=== PATIENT | female | born 1955 | race Caucasian/White ===

== ENCOUNTER 2019-12-15 05:16 | Inpatient (IN) | payer MEDICARE, OTHER ==
[~2019-12-15 05:16] MED LIST: Celecoxib 200 MG Cap PO ONE
[2019-12-15] MEDS ORDERED: Scopolamine 1.5 MG Transdermal Patch TOP ONE (05:45)
[2019-12-15] MEDS ORDERED: Acetaminophen 500 MG Tab PO ONE (05:45)
[2019-12-15] MEDS ORDERED: Celecoxib 200 MG Cap PO ONE (05:48)
[2019-12-15] MEDS ORDERED: Dextrose 5%-Lactated Ringers 1,000 ML IV SCH (06:00)
[2019-12-15 06:06] LABS: HEMOGLOBIN A1C 5.4 % (4.5-6.2)
[2019-12-15] MEDS ORDERED: cefOXitin 2 GM Vial ONE (06:38)
[2019-12-15] MEDS ORDERED: fentaNYL 250 MCG/5 ML SDV ONE ×2 (07:12→07:29)
[2019-12-15] MEDS ORDERED: Rocuronium 50 MG/5 ML Vial ONE (07:13)
[2019-12-15] MEDS ORDERED: Propofol 200 MG/20 ML SDV ONE (07:13)
[2019-12-15] MEDS ORDERED: Neostigmine Methylsulfate 1 MG/ML 5 ML Syringe ONE (07:13)
[2019-12-15] MEDS ORDERED: Glycopyrrolate 0.2 MG/ML 5 ML MDV ONE (07:13)
[2019-12-15] MEDS ORDERED: Ondansetron 4 MG/2 ML SDV ONE (07:13)
[2019-12-15] MEDS ORDERED: Succinylcholine 200 MG/10 ML MDV ONE (07:13)
[2019-12-15] MEDS ORDERED: Dexamethasone 4 MG/ML SDV ONE (07:13)
[2019-12-15] MEDS ORDERED: cefOXitin 2 GM in Sodium Chloride 0.9% 50 ML IV ONE (07:15)
[2019-12-15] MEDS ORDERED: Ropivacaine 44 ML, dexAMETHasone 8 MG, EPINEPHrine 0.4 MG, Sodium Chloride 0.9% 33.6 ML NERVRT SCH ×8 (08:00→09:40)
[2019-12-15] MEDS ORDERED: fentaNYL 100 MCG/2 ML SDV IVPUSH ONE (09:18)
[2019-12-15] MEDS ORDERED: 50% Dextrose in Water 50 ML Syringe IVPUSH PRN (09:32)
[2019-12-15] MEDS ORDERED: Insulin Lispro Protamine/Lispro 75-25 100 Units/ML 10 ML Vial SUBCUT ONE (09:32)
[2019-12-15] MEDS ORDERED: Glucagon,Human Recombinant 1 MG Vial IM PRN (09:32)
[2019-12-15] MEDS ORDERED: Ketamine 50 MG in Sodium Chloride 0.9% 49.5 ML IV SCH (09:40)
[2019-12-15] MEDS ORDERED: Magnesium Sulfate 2.5 GM in Sodium Chloride 0.9% 100 ML IV SCH (09:40)
[2019-12-15] MEDS ORDERED: Magnesium Sulfate 4.2 GM in Sodium Chloride 0.9% 250 ML IV ONE (09:40)
[2019-12-15] MEDS ORDERED: Ketamine 500 MG/5 ML MDV IV SCH (09:40)
[2019-12-15] MEDS ORDERED: Insulin Lispro 100 Unit/ML 3 ML KwikPen SUBCUT ONE (09:45)
[2019-12-15] MEDS ORDERED: hydrOXYzine HCL 100 MG/2 ML SDV IM ONE (09:45)
[2019-12-15] MEDS ORDERED: Cyclobenzaprine 10 MG Tab PO PRN (10:43)
[2019-12-15] MEDS: Dextrose 5%-Lactated Ringers 1,000 ML IV SCH (10:54)
[2019-12-15] MEDS: Lactated Ringers 1,000 ML IV SCH (10:54)
[2019-12-15] MEDS ORDERED: Insulin Lispro 100 Unit/ML 3 ML KwikPen SUBCUT PRN (11:00)
[2019-12-15] MEDS ORDERED: oxyCODONE 5 MG Tab PO PRN (11:00)
[2019-12-15] MEDS ORDERED: Ondansetron 4 MG/2 ML SDV IVPUSH PRN (11:00)
[2019-12-15] MEDS ORDERED: Calcium Gluconate 10% 1 GM/10 ML SDV IVPUSH PRN (11:00)
[2019-12-15] MEDS ORDERED: HYDROmorphone 0.5 MG/0.5 ML Syringe IVPUSH PRN (11:00)
[2019-12-15] MEDS ORDERED: Acetaminophen 500 MG Tab PO PRN (11:00)
[2019-12-15] MEDS ORDERED: HYDROmorphone 1 MG/ML Syringe IV PRN (11:00)
[2019-12-15] MEDS ORDERED: Metoclopramide 10 MG/2 ML SDV IVPUSH PRN (11:00)
[2019-12-15] MEDS ORDERED: diphenhydrAMINE 50 MG/ML SDV IVPUSH PRN (11:00)
[2019-12-15] MEDS ORDERED: Labetalol 20 MG/4 ML Syringe IVPUSH PRN (11:00)
[2019-12-15] MEDS ORDERED: Melatonin 3 MG Tab PO PRN (11:45)
[2019-12-15] MEDS ORDERED: Cetirizine 10 MG Tab PO PRN (11:50)
[2019-12-15] MEDS ORDERED: Pantoprazole 40 MG Vial IVPUSH SCH (12:30)
[2019-12-15] MEDS: cefOXitin 2 GM in Sodium Chloride 0.9% 50 ML IV SCH ×2 (13:10→18:39)
[2019-12-15] MEDS: Acetaminophen 500 MG Tab PO SCH ×2 (14:50→23:10)
[2019-12-15] MEDS ORDERED: MVI, Adult with Vitamin K 10 ML, Thiamine 200 MG, Chromium/Copper/Mang/Selen/Zn 1 ML in... IV SCH ×4 (16:00)
[2019-12-15] MEDS: Heparin Sodium 5,000 Units/ML Vial SUBCUT SCH (19:36)
[2019-12-15] MEDS ORDERED: Benzocaine/Cetylpyridinium/Menthol Lozenge MUCMEM PRN (23:08)
[2019-12-15] MEDS: hydrOXYzine HCL 100 MG/2 ML SDV IM PRN (23:17)
[2019-12-16] MEDS: Dextrose 5%-Lactated Ringers 1,000 ML IV SCH (01:56)
[2019-12-16] MEDS: Lactated Ringers 1,000 ML IV SCH (01:56)
[2019-12-16] MEDS: cefOXitin 2 GM in Sodium Chloride 0.9% 50 ML IV SCH ×3 (02:24→13:02)
[2019-12-16] MEDS ORDERED: Iopamidol 612 MG/ML 50 ML SDV PO STA (05:29)
[2019-12-16] MEDS: Acetaminophen 500 MG Tab PO SCH ×3 (06:39→21:10)
[2019-12-16] MEDS ORDERED: Ondansetron 4 MG Tab.DIS PO PRN (06:57)
[2019-12-16] MEDS ORDERED: Lactated Ringers 1,000 ML IV SCH (06:58)
[2019-12-16] MEDS ORDERED: hydrOXYzine HCl 25 MG Tab PO PRN (06:59)
[2019-12-16] MEDS: Heparin Sodium 5,000 Units/ML Vial SUBCUT SCH ×2 (07:14→19:32)
[2019-12-16] MEDS: Levothyroxine 100 MCG, Levothyroxine 25 MCG PO SCH ×2 (07:14)
[2019-12-16] MEDS: hydrOXYzine HCL 100 MG/2 ML SDV IM PRN (07:24)
--- NOTE | 2019-12-16 08:32 | PN ---
DATE OF SERVICE: 12/16/2019 SUBJECTIVE: Conchita is postoperative day #1. Her upper GI this morning was normal. Vital signs have been stable. Afebrile. Oral intake 715, output is 1020. Remainder of review of systems negative for any pertinent positives and negatives. OBJECTIVE: GENERAL: Conchita Gore is a pleasant 64-year-old female. She is alert and orientated. VITAL SIGNS: Stable. TPR is 97.4, 62, 18, blood pressure 124/62. Blood sugars have been 107, 185, 166, and 111. HEENT: Negative. NECK: Supple. HEART: Regular rate and rhythm. LUNGS: Clear. ABDOMEN: Dressings dry and intact. LOVE drain is draining a light red drainage, 90 mL. EXTREMITIES: Without peripheral edema. ASSESSMENT: 1. Laparoscopic Shaw-en-Y gastric bypass surgery. 2. Liver biopsy. 3. Repair of diaphragmatic hernia. 4. Excision of mediastinal lipoma. POSTOPERATIVE DIAGNOSES: 1. Morbid obesity. 2. Hepatomegaly. 3. Diaphragmatic hernia. 4. Mediastinal lipoma. 5. Date of procedure: 12/15/2019. Surgeon: Marty Carvajal MD. PLAN: 1. Decrease lactated Ringer's IV to 100 mL per hour. 2. Discontinue D5 LR. 3. Step 2 gastric bypass diet without cereal. 4. Communication order: 3 med cups, 1 every 20 minutes or 3 per hour. 5. Dressing off, may shower. 6. Atarax 25 mg p.o. q.4 hours p.r.n. pain. 7. Zofran ODT 4 mg sublingual every 4 hours p.r.n. nausea, vomiting. 8. Discontinue IV Dilaudid and oxycodone. 9. Recommend use of incentive spirometer as directed ambulate 6 times daily. 10.We will evaluate p.r.n. or in a.m. Shawna Bowman PA-C /[id number]
[2019-12-16] MEDS: Metoprolol Succinate 50 MG Tab.ER PO SCH (09:00)
[2019-12-16] MEDS: SCOPOLAMINE PATCH CHECK TOP SCH (09:01)
[2019-12-16] MEDS: ESCITALOPRAM PO SCH ×2 (09:01)
[2019-12-16] MEDS: amLODIPine 5 MG Tab PO SCH (09:01)
[2019-12-16] MEDS: Celecoxib 200 MG Cap PO SCH ×2 (09:01→21:10)
[2019-12-16] MEDS: Benazepril 10 MG Tab PO SCH (09:02)
--- NOTE | 2019-12-16 10:09 | CR ---
[facility] HISTORY: Postbariatric surgery FINDINGS: Patient swallowed water-soluble contrast. Upright views of the abdomen show no evidence of extravasation or obstruction. There is a surgical drain in the left upper quadrant. There is some air in the excluded portion of the stomach. IMPRESSION: Status post bariatric surgery No extravasation or obstruction seen
[2019-12-16] MEDS ORDERED: Pantoprazole 40 MG Delayed-Release Granules 1 Packet PO SCH (11:00)
[2019-12-16] MEDS ORDERED: MVI, Adult with Vitamin K 10 ML, Thiamine 200 MG, Chromium/Copper/Mang/Selen/Zn 1 ML in... IV SCH ×4 (16:00)
[2019-12-17] MEDS: Acetaminophen 500 MG Tab PO SCH (05:51)
[2019-12-17] MEDS: SCOPOLAMINE PATCH CHECK TOP SCH (08:08)
[2019-12-17] MEDS: Levothyroxine 100 MCG, Levothyroxine 25 MCG PO SCH ×2 (08:10)
[2019-12-17] MEDS: Celecoxib 200 MG Cap PO SCH (08:12)
[2019-12-17] MEDS: ESCITALOPRAM PO SCH ×2 (08:12)
[2019-12-17] MEDS: Benazepril 10 MG Tab PO SCH (08:13)
[2019-12-17] MEDS: amLODIPine 5 MG Tab PO SCH (08:14)
[2019-12-17] MEDS: Metoprolol Succinate 50 MG Tab.ER PO SCH (08:15)
[2019-12-17] MEDS: Heparin Sodium 5,000 Units/ML Vial SUBCUT SCH (08:16)
[2019-12-17] MEDS ORDERED: Magnesium Hydroxide 400 MG/5 ML Susp 30 ML Cup PO ONE (09:00)
[2019-12-17] MEDS ORDERED: Cyanocobalamin (Vitamin B12) 1,000 MCG/ML SDV IM ONE (09:00)
--- NOTE | 2019-12-19 12:58 | DISCH ---
FINAL DIAGNOSES: 1. History of rheumatoid arthritis. 2. History of obstructive sleep apnea. 3. Type 2 diabetes mellitus. 4. Obesity. OPERATIVE PROCEDURES: Done on date of 12/14: 1. Laparoscopic Shaw-en-Y gastric bypass with long limb gastroenterostomy. 2. Armaan-Cut needle liver biopsy. 3. Repair of paraesophageal diaphragmatic hernia. 4. Excision of mediastinal lipoma. SUMMARY: This is a 64-year-old female, presenting with longstanding morbid obesity, increasingly significant comorbidities. After preoperative evaluation and discussion, she wished to proceed with gastric bypass procedure. This was done on the date of admission with the above additional procedures done concurrently. Postoperatively, she has had no significant problems. She had been off the metformin and had no diabetic medications. At any rate, her blood sugars were in the 101 to 127 range for the last 48 hours. Otherwise, she will be sent home on a step 2 diet until first appointment, which will be with Shawna Bowman, on 12/26/2019. Medications will be same as preop other than we will hold the metformin and offer Tylenol 1 g q.6 hours p.r.n. pain. /[id number]
--- NOTE | 2019-12-21 08:09 | OR ---
DATE OF PROCEDURE: 12/15/2019 SURGEON: Marty Carvajal MD PREOPERATIVE DIAGNOSIS: Morbid obesity. POSTOPERATIVE DIAGNOSES: 1. Morbid obesity. 2. Marked hepatomegaly. 3. Paraesophageal diaphragmatic hernia. 4. Mediastinal lipoma. OPERATIVE PROCEDURES: 1. Laparoscopic Shaw-en-Y gastric bypass with long limb gastroenterostomy (55186). 2. Armaan-Cut needle liver biopsy (17212). 3. Repair of paraesophageal diaphragmatic hernia (98848). 4. Excision of mediastinal lipoma (12094). ANESTHESIA: General. RESP THERAPIST: Shawna Bowman PA-C INDICATIONS FOR PROCEDURE: This is a 64-year-old female presenting with longstanding morbid obesity and increasingly significant comorbidities. After preoperative evaluation and discussion, she wished to proceed with a gastric bypass procedure. Potential risks of procedure including bleeding, infection, leaks from various GI tract closures, and problems with bowel obstruction over time as well as possibility of cardiopulmonary, septic, or hemorrhagic complications leading to were all discussed, and the patient wishes to proceed. DETAILS OF PROCEDURE: The patient was taken to the operating room, and after general endotracheal anesthesia was induced, she was placed in a lithotomy position, and the abdomen prepped and draped. At 15 cm inferior and 5 cm left of the xiphoid process, a transverse incision was made, and peritoneal cavity entered under direct vision with an Optiview trocar, inflated to 15 mmHg pressure with CO2. Laparoscope was reinserted. No underlying trocar insertion site injuries were seen. Bilateral subcostal transversus abdominis plane blocks were then placed, and 5 additional trocars were placed across the upper and mid abdomen. The liver was noted to be markedly enlarged and fatty infiltrated. Given this, Armaan-Cut needle biopsies were obtained from left lobe of liver. Minimal bleeding from the biopsy sites was controlled with electrocautery. The omentum was then divided in the midline up to the level of the transverse colon. This allowed identification of the small bowel at the ligament of Treitz. Small bowel was then traced out 150 cm distal to that point. It was divided transversely with KYUNG stapler, then traced out additional 175 cm where a [id number] enteroenterostomy was accomplished with an internal firing of the Endo-KYUNG 60 mm stapler. Common opening was then closed transversely with the same stapler, angles anastomosed, and mesenteric defect approximated with some 0 Ethibond sutures along with fibrin sealant. The Shaw limb was then brought up in an antecolic position up to level of the gastroesophageal junction without tension. The liver was retracted anteriorly. The patient was noted to have a significant paraesophageal diaphragmatic hernia with dimpling of peritoneum and perigastric fat and gastric fundus into the area of the defect. This was reduced and the peritoneum overlying incised and reflected downward. During the course of this dissection, mediastinal lipoma was encountered, and this was excised to facilitate more adequate crural repair which was then accomplished with 0 Ethibond sutures and reinforced with PTFE pledgets. At this point, the gastrointestinal balloon catheter was inflated to 15 mL and pulled up snugly against the EG junction. Gastric wall over the apex balloon was then marked with electrocautery. Balloon catheter deflated and pulled up from the esophagus. The lesser omental tissue adjacent to the gastric cardia was then incised allowing dissection behind the stomach at that level. Pouch formation was initiated with transverse firing of the KYUNG stapler at the level of the cauterized marlo in the gastric cardia and continued through the remainder of the stomach, up to and through the angle of His. Once the pouch was completed, both staple lines were noted to be intact. The anvil of a 25 mm EEA stapler was attached to a [place] sump type tube. The latter was brought down through the mouth, taken out through the small opening in the gastric pouch allowing the anvil likewise to be pulled down to within the gastric pouch. The divided end of Shaw limb was then opened, and main body of EEA stapler passed several centimeters into the lumen of small bowel, brought up the anvil, united with it, thus creating the gastrojejunostomy. Upon removal of the stapler, double donuts of mucosa were noted within it. The small bowel was closed off with a vascular staple line. Gastrojejunostomy was reinforced with some 3-0 Vicryl seromuscular stitch along with fibrin sealant. A leak test was accomplished with injection of 120 mL of air in the gastric pouch while it was submerged with cefoxitin-containing saline solution. No leaks were identified. A single Finn- Lazaro drain was then placed adjacent to the gastric cardia and taken down from there to the area of splenic fossa. The trocars were sequentially removed and the peritoneal cavity deflated. Incisions were closed with some 4-0 Vicryl skin stitch as was also used to fix the drain and dressing applied. The patient was taken to the recovery room in satisfactory condition. Physician nursing home assistant administrator, Shawna Bowman PA-C, played an essential role in assisting in this case, helping to position the patient, retract structures as needed as well as suturing and cutting sutures when indicated. Her presence improved patient safety and decreased the operative time. Marty Carvajal MD /[id number]
== END 2019-12-17 10:58 | disposition home or self-care (01) | DRG 621 ==
LOC: JP.MS 05:16 → JP.SDS 05:16 → JP.MS 09:00 → EDSTATUS 09:25 → JP.MS 10:36
PROVIDERS: ADMIT Surgery; ATTEND Surgery
PROC: 0D164ZA Bypass Stomach to Jejunum, Percutaneous Endoscopic Approach (ICD-10-PCS; principal; 2019-12-15)
PROC: 0FB24ZX Excision of Left Lobe Liver, Percutaneous Endoscopic Approach, Diagnostic (ICD-10-PCS; 2019-12-15)
PROC: 0JB63ZZ Excision of Chest Subcutaneous Tissue and Fascia, Percutaneous Approach (ICD-10-PCS; 2019-12-15)
DX: E66.01 Morbid (severe) obesity due to excess calories (principal); G47.33 Obstructive sleep apnea (adult) (pediatric); M06.9 Rheumatoid arthritis, unspecified; E11.9 Type 2 diabetes mellitus without complications; K21.9 Gastro-esophageal reflux disease without esophagitis; I10 Essential (primary) hypertension; E78.5 Hyperlipidemia, unspecified; Z96.653 Presence of artificial knee joint, bilateral; Z90.49 Acquired absence of other specified parts of digestive tract; Z90.710 Acquired absence of both cervix and uterus; Z98.890 Other specified postprocedural states; Z98.51 Tubal ligation status; Z90.89 Acquired absence of other organs; Z79.890 Hormone replacement therapy; Z79.84 Long term (current) use of oral hypoglycemic drugs; Z79.899 Other long term (current) drug therapy; K44.9 Diaphragmatic hernia without obstruction or gangrene
CPT/HCPCS: 36415; 74240; 74240-26; 82962; 83036; 85027; 86850; 86900; 86901; 88304; 88307; 88313; 94762; A9270-GY; C9113; J0171; J0330; J0694; J1100; J1170; J1644; J1815; J2405; J2704; J2710; J2795; J3010; J3410; J3411; J3420; J3475; J3490; J7050; J7120; J7121; Q9967